=== PATIENT | female | born 1945 | race Caucasian/White ===

== ENCOUNTER 2017-08-20 08:36 | Day surgery (SDC) | payer OTHER ==
[2017-08-20] MEDS ORDERED: TETRACAINE 0.5% OPHTH 1 DOSE AFFEYE ONE ×2 (08:49→13:11)
[2017-08-20] MEDS: NS 500 ML IV 500 ML IV ONE ×2 (09:00→13:11)
[2017-08-20] MEDS ORDERED: VIGAMOX 0.5% OPHTH 1 DOSE AFFEYE ONE ×5 (09:00→13:28)
[2017-08-20] MEDS ORDERED: PROLENSA OPHTH 1 DOSE AFFEYE ONE (09:11)
[2017-08-20] MEDS ORDERED: ALPHAGAN-P OPHTH 1 DOSE AFFEYE ONE (09:13)
[2017-08-20] MEDS ORDERED: MYDRIACIL OPHTH 1 DOSE AFFEYE ONE ×3 (09:15→09:20)
[2017-08-20] MEDS ORDERED: CYCLOGYL 1% OPHTH 1 DOSE OP ONE ×3 (09:15→09:20)
[2017-08-20] MEDS ORDERED: AK-DILATE 2.5% OPHTH 1 DOSE OP ONE ×3 (09:15→09:20)
[2017-08-20] MEDS ORDERED: VERSED ONE (09:29)
[2017-08-20] MEDS ORDERED: BETADINE OPHTH SOLN 5% EACHEYE ONE (13:11)
[2017-08-20] MEDS ORDERED: DUOVISC IO ONE (13:17)
[2017-08-20] MEDS ORDERED: ADRENALINE CHL INJ IJ ONE (13:17)
[2017-08-20] MEDS ORDERED: BSS OPHTH (PLAIN) 500 ML with VANCOMYCIN HCL 500 MG VIAL 25 MG, ADRENALINE CHL INJ 1 MG IR ONE ×3 (13:17)
[2017-08-20] MEDS ORDERED: XYLOCAINE-MPF 1% IJ ONE (13:17)
[2017-08-20] MEDS ORDERED: TobraDEX OPHTH SUSP 1 DOSE AFFEYE ONE (13:28)
[2017-08-20 16:12] VITALS: BP 125/68
== END 2017-08-20 13:52 | disposition home or self-care (01) ==
LOC: SURG1 08:36
PROVIDERS: ATTEND Ophthalmology
PROC: 08DJ3ZZ Extraction of Right Lens, Percutaneous Approach (ICD-10-PCS; principal; 2017-08-20 14:15)
PROC: 08RJ3JZ Replacement of Right Lens with Synthetic Substitute, Percutaneous Approach (ICD-10-PCS; principal; 2017-08-20 14:15)
DX: H25.11 Age-related nuclear cataract, right eye (principal); H25.011 Cortical age-related cataract, right eye
CPT/HCPCS: 99100; A4217; J0170; J2250; J3370

== ENCOUNTER 2017-09-03 10:27 | Day surgery (SDC) | payer OTHER ==
[2017-09-03] MEDS ORDERED: TETRACAINE 0.5% OPHTH 1 DOSE AFFEYE ONE ×3 (10:37→14:09)
[2017-09-03] MEDS ORDERED: NS 500 ML IV 500 ML IV ONE (10:38)
[2017-09-03] MEDS ORDERED: VIGAMOX 0.5% OPHTH 1 DOSE AFFEYE ONE ×5 (10:40→14:19)
[2017-09-03] MEDS ORDERED: VERSED ONE (10:44)
[2017-09-03] MEDS ORDERED: DIPRIVAN VIAL ONE (10:44)
[2017-09-03] MEDS ORDERED: PROLENSA OPHTH 1 DOSE AFFEYE ONE (10:52)
[2017-09-03] MEDS ORDERED: ALPHAGAN-P OPHTH 1 DOSE AFFEYE ONE (10:54)
[2017-09-03] MEDS ORDERED: MYDRIACIL OPHTH 1 DOSE AFFEYE ONE ×4 (10:55→11:02)
[2017-09-03] MEDS ORDERED: CYCLOGYL 1% OPHTH 1 DOSE OP ONE ×4 (10:55→11:02)
[2017-09-03] MEDS ORDERED: AK-DILATE 2.5% OPHTH 1 DOSE OP ONE ×4 (10:55→11:02)
[2017-09-03] MEDS ORDERED: BETADINE OPHTH SOLN 5% EACHEYE ONE (13:59)
[2017-09-03] MEDS ORDERED: XYLOCAINE-MPF 1% IJ ONE (14:09)
[2017-09-03] MEDS ORDERED: BSS OPHTH (PLAIN) 500 ML with VANCOMYCIN HCL 500 MG VIAL 25 MG, ADRENALINE CHL INJ 1 MG IR ONE ×3 (14:09)
[2017-09-03] MEDS ORDERED: DUOVISC IO ONE (14:09)
[2017-09-03] MEDS ORDERED: ADRENALINE CHL INJ IJ ONE (14:09)
[2017-09-03 14:36] VITALS: BP 112/53
== END 2017-09-03 14:40 | disposition home or self-care (01) ==
LOC: SURG1 10:27
PROVIDERS: ATTEND Ophthalmology
PROC: 08RK3JZ Replacement of Left Lens with Synthetic Substitute, Percutaneous Approach (ICD-10-PCS; principal; 2017-09-03 16:30)
PROC: 08DK3ZZ Extraction of Left Lens, Percutaneous Approach (ICD-10-PCS; principal; 2017-09-03 16:30)
DX: H25.12 Age-related nuclear cataract, left eye (principal); H25.012 Cortical age-related cataract, left eye
CPT/HCPCS: 99100; A4217; J0170; J2250; J3370; J3490